=== PATIENT | female | born 1990 | race Caucasian/White ===

== ENCOUNTER 2016-07-02 18:16 | Emergency (ER) | payer OTHER ==
[~2016-07-02] VITALS: Ht 167.6 cm; Wt 63.6 kg
[2016-07-02 18:56] VITALS: Ht 167.6 cm; Wt 63.6 kg
[2016-07-02] MEDS ORDERED: SODIUM CHLORIDE 0.9% 1000ML 1,000 ML IV STA (21:30)
[2016-07-02] MEDS ORDERED: PROCHLORPERAZINE 5 MG/ML 2 ML VIAL IV STA (21:30)
[2016-07-02] MEDS ORDERED: DiphenhydrAMINE HCL 50 MG/ML VIAL IV STA (21:30)
[2016-07-02] MEDS ORDERED: SUMA25TA12 PO (21:46)
[2016-07-02] MEDS ORDERED: LEVO50TA6 PO (21:50)
[2016-07-02] MEDS ORDERED: NORT50CA PO (21:50)
[2016-07-02] MEDS ORDERED: LINA1CAP PO (21:52)
[2016-07-02 22:08] LABS: PREG INTERNAL NEGATIVE QC NEG CLEAR BACKGROUND; PREG INTERNAL POSITIVE QC POS CONTROL LINE
[2016-07-02 22:13] LABS: BASO % 0.8 %; BASO ABS # 0.05 K/uL (0-0.2); COMPLETE YES; EOS % 0.8 %; HEMATOCRIT 37.9 % (37-47); IG% 0.2 %; LYMPH % 42.3 %; LYMPH ABS # 2.65 K/uL (1.2-3.4); MEAN CELL VOLUME 87.3 fL (80-100); MEAN CORPUSCULAR HEMOGLOBIN 29.7 pg (25-34); MEAN PLATELET VOLUME 11.3 fL (7.4-10.4); NEUT % 44.9 %; PLATELET COUNT 287 K/uL (130-400); RED BLOOD COUNT 4.34 M/uL (4.2-5.4); WHITE BLOOD COUNT 6.26 K/uL (4.8-10.8)
[2016-07-02 22:25] LABS: PROTHROMBIN TIME (PATIENT) 10.9 SECONDS (9.0-12.0)
[2016-07-02 22:46] LABS: BUN/CREATININE RATIO 17.1 (10-20); CALCIUM 9.1 mg/dl (8.5-10.1); CREATININE 0.68 mg/dl (0.60-1.20); POTASSIUM 3.7 mmol/L (3.5-5.1)
[2016-07-02 23:02] LABS: LYME DISEASE AB IGG NEG (NEG); LYME DISEASE AB IGM NEG (NEG)
[2016-07-02 23:18] VITALS: BP 134/86; PULSE 84; TEMP 36.8; O2SAT 100
--- NOTE | 2016-07-03 00:34 | EMERGENCY ROOM VISIT NOTE ---
History Report prepared by Merly: Veronica Everett Under the Supervision of: Dr. Bunyn Kovacs M.D. First contact with patient: 21:16 Chief Complaint: HEAD PAIN Stated Complaint: HEAD PRESSURE, COLD/BURNING SENSATIONS,BLOOD TASTE History of Present Illness The patient is a 26 year old female who presents to the Emergency Room with complaints of a worsening headache beginning 6 weeks prior to arrival. The patient describes a cold sensation and tingling throughout her head. The patient today began to also experience a sharp burning sensation that is not centralized to one location on her head. She is also experiencing a metallic blood taste in her mouth. She does state that she has recently had a nosebleed as well as sorethroat and cough. The patient recently has been experiencing neck tightness that worsens with rotation of her head. She notes eye sensitivity and changing elevation worsens her headache. The patient has been to [facility] 3 times and [place] also. She had a CT scan negative , MRI done end of May, and tested negative for Lyme disease. During that time the patient was experiencing numbness and weakness to her left side along with occasional slurred speech. The patient has also followed up with Neurology and was diagnosed with complex migraines. The patient was put on Imitrex migraine medication but has not seen improvement since taking. She states that she has never had a migraine before last month. She was recently diagnosed with Thyroid disease and is followed by her Clinical Training Specialist who put her on medication to treat. She did state that she saw her vice president sales and marketing today who felt that her symptoms are not related to her thyroid disease. The patient denies shortness of breath or double vision. 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 A total of 10 systems reviewed and were otherwise negative. Past Medical & Surgical Medical Problems: (1) complex migraines (2) Thyroid disease (3) Thyroid disease Family History FH: thyroid disease Social History Smoking Status: Never Smoker Smokeless Tobacco Use: No Marital Status: single Housing Status: lives with family Occupation Status: employed Current/Historical Medications Scheduled Levothyroxine Sodium (Levothyroxine Sodium), 50 MCG PO DAILY Linaclotide (Linzess), 145 MCG PO DAILY Nortriptyline (Pamelor), 50 MG PO DAILY Sumatriptan Succinate (Imitrex), 25 MG PO PRN Allergies Coded Allergies: No Known Allergies (Unverified , 07/02/16) Physical Exam Vital Signs Date Time Temp Pulse Resp B/P Pulse Ox O2 Delivery O2 Flow Rate FiO2 07/02/16 23:18 36.8 84 18 134/86 100 07/02/16 22:26 134/86 07/02/16 18:56 36.8 84 18 145/86 100 Room Air Physical Exam Constitutional: Vital signs reviewed. Eyes: Pupils are equal round reactive to light. Conjunctiva are noninjected. ENT: Pharynx is clear without erythema or exudate. Mucous membranes are moist. Neck supple without meningeal signs. Respiratory: Clear to auscultation bilaterally. Breath sounds are equal bilaterally. Cardiovascular: Regular rate and rhythm. No rubs or gallops. GI: Soft, nondistended and nontender. Bowel sounds are present. Musculoskeletal: No peripheral edema. No lower extremity tenderness. Integumentary: No cyanosis. Neurological: The patient is awake and alert. Cranial nerves II-XII are intact. Motor is 5 out of 5 all extremities. Sensation is intact to light touch all extremities. Normal speech. No pronator drift. Psychiatric: Slightly anxious. Medical Decision & Procedures Laboratory Results 07/02/16 21:45 Red Blood Count 4.34, Mean Corpuscular Volume 87.3, Mean Corpuscular Hemoglobin 29.7, Mean Corpuscular Hemoglobin Concent 34.0, Mean Platelet Volume 11.3, Neutrophils (%) (Auto) 44.9, Lymphocytes (%) (Auto) 42.3, Monocytes (%) (Auto) 11.0, Eosinophils (%) (Auto) 0.8, Basophils (%) (Auto) 0.8, Neutrophils # (Auto ) 2.81, Lymphocytes # (Auto) 2.65, Monocytes # (Auto) 0.69, Eosinophils # (Auto ) 0.05, Basophils # (Auto) 0.05 07/02/16 21:45 Test 07/02/16 00:00 07/02/16 21:45 Urine Test NEG (NEG) White Blood Count 6.26 K/uL (4.8-10.8) Red Blood Count 4.34 M/uL (4.2-5.4) Hemoglobin 12.9 g/dL (12.0-16.0) Hematocrit 37.9 % (37-47) Mean Corpuscular Volume 87.3 fL (80-100) Mean Corpuscular Hemoglobin 29.7 pg (25-34) Mean Corpuscular Hemoglobin Concent 34.0 g/dl (32-36) Platelet Count 287 K/uL (130-400) Mean Platelet Volume 11.3 fL (7.4-10.4) Neutrophils (%) (Auto) 44.9 % Lymphocytes (%) (Auto) 42.3 % Monocytes (%) (Auto) 11.0 % Eosinophils (%) (Auto) 0.8 % Basophils (%) (Auto) 0.8 % Neutrophils # (Auto) 2.81 K/uL (1.4-6.5) Lymphocytes # (Auto) 2.65 K/uL (1.2-3.4) Monocytes # (Auto) 0.69 K/uL (0.11-0.59) Eosinophils # (Auto) 0.05 K/uL (0-0.5) Basophils # (Auto) 0.05 K/uL (0-0.2) RDW Standard Deviation 43.1 fL (36.4-46.3) RDW Coefficient of Variation 13.4 % (11.5-14.5) Immature Granulocyte % (Auto) 0.2 % Immature Granulocyte # (Auto) 0.01 K/uL (0.00-0.02) Prothrombin Time 10.9 SECONDS (9.0-12.0) Prothromb Time International Ratio 1.0 (0.9-1.1) Activated Partial Thromboplast Time 25.4 SECONDS (21.0-31.0) Partial Thromboplastin Ratio 1.0 Anion Gap 9.0 mmol/L (3-11) Est Creatinine Clear Calc Drug Dose 117.3 ml/min Estimated GFR () 139.9 Estimated GFR (Non- 120.7 BUN/Creatinine Ratio 17.1 (10-20) Calcium Level 9.1 mg/dl (8.5-10.1) Total Bilirubin 0.5 mg/dl (0.2-1) Direct Bilirubin 0.1 mg/dl (0-0.2) Aspartate Amino Transf (AST/SGOT) 13 U/L (15-37) Alanine Aminotransferase (ALT/SGPT) 16 U/L (12-78) Alkaline Phosphatase 45 U/L (45-117) Total Protein 7.7 gm/dl (6.4-8.2) Albumin 4.2 gm/dl (3.4-5.0) Lyme Disease IgG Antibody NEG (NEG) Lyme Disease IgM Antibody NEG (NEG) Laboratory results as reviewed by me. Medications Administered Medications (Trade) Dose Ordered Sig/Bree Route Start Time Stop Time Status Last Admin Dose Admin Prochlorperazine Edisylate (Compazine Inj) 10 mg NOW STAT IV 07/02/16 21:30 07/02/16 21:33 DC 07/02/16 21:57 10 MG Diphenhydramine HCl 50 mg 50 mg NOW STAT IV 07/02/16 21:30 07/02/16 21:33 DC 07/02/16 21:58 50 MG Sodium Chloride (Nss 1000ml) 1,000 ml @ 999 mls/hr Q1H1M STAT IV 07/02/16 21:30 07/02/16 22:30 DC 07/02/16 21:58 999 MLS/HR ED Course 8: The patient was evaluated in room A3. A complete history and physical exam was performed. 0: Sodium Chloride 1,000 ml @ 999 mls/hr IV, Benadryl Inj 50 mg IV, Compazine Inj 10 mg IV. 2226: I reviewed [facility] record findings with the patient. She no longer has a headache after the medications. 2308: I discussed the results with the patient. 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 2312: Upon reevaluation, the patient appeared to have improvement of her symptoms. I discussed tonight's findings with her. She verbalized agreement of the treatment plan. She was discharged home. Medical Decision this is a 26-year-old female who presents with headache. Differential diagnosis includes complex migraine, intracranial hemorrhage, intracranial mass , metabolic derangement, autoimmune disorder, Lyme disease. I did perform a limited focused review of portions of the patient's old chart on the electronic medical record. The patient has had no prior visits to this hospital. Epic system: Patient had negative MRI of brain, negative MRV of brain, negative MRA of the neck and head. She saw neurology on June 21 who reviewed her case and felt that she likely had migraine headache. Noted she had negative EEG. It was also considered possibility of metabolic or autoimmune process as well as demyelinating disorders. 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 I did evaluate the patient as noted above. The patient is neurologically intact. She has had an extensive workup as described above and seen by neurology who felt that she likely had complex migraines. She came to this ED for a second opinion and also she had worsening of her headache. IV access was established. I did treat the patient with IV Compazine, Benadryl and normal saline. I did order and review the patient's blood work as noted in the electronic medical record. Her white blood cell count is not elevated. Lyme testing is negative. I did reassess the patient. Her headache is resolved. At this time her symptoms seem most consistent with a migraine headache. She does have a history of a constellation of symptoms over the past 6 months so I did recommend she talk to her doctor about further testing for possible autoimmune disorder. She does state that her vice president sales and marketing is working her up for possible Kaitlin's. She was advised to follow up with either her urologist or Dr. Pagan if she wanted a second opinion. She was discharged in good condition. Impression Primary Impression: Headache Scribe Attestation The scribe's documentation has been prepared under my direct and personally reviewed by me in its entirety. I confirm that the note above accurately reflects all work, treatment, procedures, and medical decision making performed by me. Departure Information Dispostion Home / Self-Care Referrals Cynthia Glover DO (PCP) Forms HOME CARE DOCUMENTATION FORM, IMPORTANT VISIT INFORMATION, WORK / SCHOOL INSTRUCTIONS Patient Instructions Headache Pain, My [facility] Additional Instructions You have been examined and treated today on an emergency basis only. This is not a substitute for, or an effort to provide, complete comprehensive medical care. It is impossible to recognize and treat all injuries or illnesses in a single emergency department visit. It is therefore important that you follow up closely with your physician and Dr. Pagan of neurology. Call as soon as possible for an appointment. Return for worsening symptoms or if you develop fever, numbness or weakness on one side of your body, difficulties with your speech or walking, or any other concerning symptoms. Problem Qualifiers Primary Impression: Headache Headache type: unspecified Headache chronicity pattern: episodic headache Intractability: not intractable Qualified Codes: R51 - Headache
== END 2016-07-02 23:19 | disposition home or self-care (01) ==
LOC: C.EDB 18:18 → C.EDA 23:19
DX: R51 Headache (principal)